=== PATIENT | male | born 1955 | race Caucasian/White ===

== ENCOUNTER 2024-09-15 06:09 | Day surgery (SDC) | payer BC, SELFPAY ==
[2024-09-15 07:52] VITALS: BMI 27.4
[2024-09-15 07:57] VITALS: BP 124/65
[2024-09-15 07:58] VITALS: BMI 27.4
[2024-09-15 11:04] VITALS: BP 114/62
[2024-09-15 11:15] VITALS: BP 117/57
[2024-09-15 11:30] VITALS: BP 119/70; BP 130/75
== END 2024-09-15 11:55 | disposition home or self-care (01) ==
LOC: GI 06:09
PROVIDERS: ATTENDING PHYSICIAN Internal Medicine Gastroenterology
DX: K86.89 Other specified diseases of pancreas (principal); K86.9 Disease of pancreas, unspecified; R93.3 Abnormal findings on diagnostic imaging of other parts of digestive tract; C49.A2 Gastrointestinal stromal tumor of stomach
CPT/HCPCS: 43242; 88173; 88305

== ENCOUNTER 2024-10-13 11:48 | Inpatient (IN) | payer MEDICARE, SELFPAY ==
[2024-09-30 11:53] LABS: Hematocrit 47.4 % (39.0-52.0); Hemoglobin 15.9 g/dL (13.0-18.0); Mean Corp Hgb Conc. 33.5 g/dL (33.0-37.0); Mean Corpuscular Hgb 31.6 pg (27.0-31.0); Mean Corpuscular Volume 94.2 fL (80.0-94.0); Mean Platelet Volume 10.3 fL (7.4-10.4); Platelet Count 291 10^3/uL (130-400); Red Blood Cell Count 5.03 10^6/uL (4.70-6.10); Red Cell Dist. Width 12.5 % (11.5-14.5); White Blood Cell Count 5.6 10^3/uL (4.8-10.8)
[2024-09-30 12:10] LABS: INR 1.14; PT 15.1 Sec (11.4-14.6)
[2024-09-30 12:11] LABS: APTT 33.2 Sec (23.4-35.0)
[2024-09-30 13:51] LABS: ALT (SGPT) 29 U/L (0-50); AST (SGOT) 26 U/L (17-59); Albumin 4.4 g/dl (3.5-5.0); Alkaline Phosphatase 83 U/L (38-126); Blood Urea Nitrogen 16 mg/dl (9-20); Calcium 10.2 mg/dl (8.4-10.2); Carbon Dioxide 28 mmol/L (22-30); Chloride 107 mmol/L (98-107); Glucose 90 mg/dl (70-99); Potassium 5.4 mmol/L (3.5-5.1); Sodium 142 mmol/L (135-145); Total Bilirubin 0.8 mg/dl (0.2-1.3); eGFR > 60.00
[2024-09-30 13:54] VITALS: BMI 27.1
[2024-10-13] VITALS (14 sets, daily range): BP systolic 0–164; BP diastolic 62–95; BMI 27.1
[2024-10-13] MEDS: NEURONTIN 300 MG PO (12:08)
[2024-10-13] MEDS: TYLENOL 1000 MG PO (12:08)
[2024-10-13] MEDS: NORMOSOL-R/PLASMALYTE-A 1000 IV (12:18)
[2024-10-13 13:20] LABS: Glucose - Point of Care 99 mg/dl (70-99)
[2024-10-13] MEDS: DILAUDID 0.25 MG IV ×2 (15:27→15:40)
--- NOTE | 2024-10-13 16:30 | PTCARENOTE ---
Pt received from PACU, pain is 2/10 in ABD. Lap sites and ROSALEE drain intact. Admission questions completed. Pt currently comfortable, CLD ordered.
[2024-10-13] MEDS: TYLENOL 650 MG PO ×2 (16:36→19:36)
[2024-10-13] MEDS: D5/0.9% SODIUM CHLORIDE 1000 IV (16:36)
[2024-10-13] MEDS: ROXICODONE 5 MG PO (17:34)
[2024-10-13] MEDS: TOPROL XL 50 MG PO (19:34)
[2024-10-13] MEDS: COLACE 100 MG PO (19:36)
[2024-10-13] MEDS: DILAUDID 0.5 MG IV (19:42)
[2024-10-13] MEDS: DIOVAN 160 MG PO (21:03)
[2024-10-13] MEDS: TYLENOL PO (23:57)
[2024-10-14] MEDS: ROXICODONE 5 MG PO ×3 (02:00→14:37)
[2024-10-14 03:00] VITALS: BP 138/64
[2024-10-14] MEDS: TYLENOL 650 MG PO ×4 (04:00→15:30)
--- NOTE | 2024-10-14 04:16 | DOWNTIME ---
Addendum entered by Beth Kasper RN 10/14/24 14:05:
Correction to downtime 10/14/2024 from 0100 to 10/14/24 at 0415.
Original Note:
There was a [employer] Downtime on 10/13/2024 from 0100 to 10/14/2024 at 0415. Downtime documentation of patient's care, including medication administrations, has been reconciled in the electronic record per guidelines. Refer to the
patient's paper chart under the miscellaneous tab to see printed paper medication records and downtime forms.
[2024-10-14] MEDS: D5/0.9% SODIUM CHLORIDE 1000 IV (05:30)
[2024-10-14 07:10] VITALS: BP 138/71
[2024-10-14] MEDS: TOPROL XL 50 MG PO (09:13)
[2024-10-14] MEDS: COLACE 100 MG PO (09:13)
[2024-10-14] MEDS: PROTONIX 20 MG PO (09:13)
[2024-10-14 11:10] VITALS: BP 139/73
--- NOTE | 2024-10-14 11:10 | CM ---
CM following re: discharge planning.
Reviewed pt's chart, met with pt.
Pt is a 69 year old male, admitted with primary dx of POD#1 laparoscopy, resection of pancreatic tumor.
Pt reports he lives with spouse and a son 2SH, 2 steps to enter, has 2 supportive children. 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
PCP: Juan Schaeffer
Pharmacy: [facility]
D/C plan: home with anticipated no needs.
CM will follow with discharge plan updates as hospitalization progresses
[2024-10-14 15:10] VITALS: BP 144/60
--- NOTE | 2024-10-14 16:30 | W.DS.TRANS ---
DC Summary - Aerobics Instructor
-
Discharge Instructions:
Sleep Apnea Risk High
Discharge Diagnosis/Procedures pancreatic tumor
Diet Regular
Activity No strenuous activity,As tolerated
Driving Restrictions Not until seen by your Dr
Bathing Restrictions OK to Shower
Instructions:
Stand-Alone Forms:
Changes to Home Medications: No
Discharge Medications:
DC Medications w/original date entered in [facility]
fluticasone propionate 50 mcg/actuation nasal spray,suspension 2 spray intranasal DAILY allergies 07/01/17
ascorbic acid (vitamin C) 500 mg tablet (Vitamin C) 500 mg PO DAILY Supplement 04/25/21
apixaban 5 mg tablet (Eliquis) 5 mg PO BID Blood Clot Prevention/Tx 07/27/22
zolpidem 5 mg tablet (Ambien) 5 mg PO HS PRN sleep 07/27/22
dupilumab 300 mg/2 mL subcutaneous pen injector (Dupixent) 300 mg SC Q2W High Cholesterol 10/29/22
metoprolol succinate 50 mg tablet,extended release 24 hr 50 mg PO BID Blood Pressure 09/15/24
[place] Beets 2 gummy PO DAILY Supplement 10/06/24
loratadine 10 mg tablet (Claritin) 10 mg PO DAILY PRN Allergy Symptoms 10/06/24
magnesium 200 mg tablet 400 mg PO DAILY Supplement 10/06/24
valsartan 160 mg tablet 160 mg PO HS Blood Pressure 10/06/24
vitamin B complex 1 tab PO DAILY Supplement 10/06/24
pantoprazole 20 mg tablet,delayed release (Protonix) 20 mg PO DAILY Gastrointestinal Issue 10/13/24
Home Medication Changes
Pending Results: No
== END 2024-10-14 17:05 | disposition home or self-care (01) | DRG 407 ==
LOC: 2 SOUTH 11:48
PROVIDERS: ADMITTING PHYSICIAN Surgery; FAMILY PHYSICIAN Internal Medicine
PROC: 0FBG4ZZ Excision of Pancreas, Percutaneous Endoscopic Approach (ICD-10-PCS; 2024-10-13)
DX: K86.9 Disease of pancreas, unspecified (principal)
CPT/HCPCS: 88305; 88332; 36415; 80053; 82962; 85027; 85610; 85730; 86850; 86900; 86901; 88331; 93005; C1729; C1776

== ENCOUNTER 2025-02-22 11:47 | Day surgery (SDC) | payer MEDICARE, SELFPAY ==
[2025-02-22 13:06] VITALS: BMI 28.3
--- NOTE | 2025-02-22 13:45 | ITS.CL.IMPLP ---
Maintenance Aide - Implant Loop
Implant Loop
Procedure Report:
Date of Procedure: February 22, 2025
Primary Care Provider: Dr Maurizio Carballo
Primary drop board worker: Dr Yobany Whitfield
Procedure: Insertable Loop Recorder Implantation
Indication:
Atrial fibrillation
Procedure:
The patient was brought to the procedure area in a fasting state. The anterior chest was prepped and draped in standard sterile fashion. The fourth intercostal space along the left sternal border was identified and this area was anesthetized with 10
mL of 1% lidocaine. After gathering the skin in this area, a small punch incision was made at approx intercostal space 4-5 at left costo-sternal junction using the provided scalpel/punch tool. The loop recorder was loaded into the tunneling device.
A tunnel was created in the subcutaneous tissue at a 45� angle along the coronal plane away from the sternum and towards the left flank. The tunneling device was inverted and the plunger was depressed, inserting the loop recorder into the
subcutaneous space. The tunneling device was removed. Manual pressure provide hemostasis. Adequate signal was confirmed. The skin was closed with steri-strips. The estimated blood loss was < 1 cc. A clean dressing was placed over the wound.
There were no complications.
Implant:
[employer] Reveal LINQ II
Conclusion: Uncomplicated implantation of loop recorder.
Recommendation:
Maintain off DOAC unless there is documented recurrent sustained atrial fibrillation or atrial flutter.
Routine ILR care.
Copy:
Primary Care Provider: Dr Maurizio Carballo
Primary drop board worker: Dr Yboany Whitfield
== END 2025-02-22 13:46 | disposition home or self-care (01) ==
LOC: CATH 11:47
PROVIDERS: ATTENDING PHYSICIAN Internal Medicine Cardiovascular Disease; FAMILY PHYSICIAN Internal Medicine
DX: Z09 Encounter for follow-up examination after completed treatment for conditions other than malignant neoplasm (principal); I48.91 Unspecified atrial fibrillation; I10 Essential (primary) hypertension; R55 Syncope and collapse; Z79.01 Long term (current) use of anticoagulants; Z79.899 Other long term (current) drug therapy
CPT/HCPCS: 33285; C1764

== ENCOUNTER → 2025-04-05 13:02 | Outpatient (REF) | payer MEDICARE, SELFPAY ==
[2025-04-05 14:22] LABS: Blood Urea Nitrogen 17 mg/dl (9-20)
== END ==
LOC: RAD 13:02
PROVIDERS: ATTENDING PHYSICIAN Surgery; FAMILY PHYSICIAN Internal Medicine
DX: K86.9 Disease of pancreas, unspecified (principal)
CPT/HCPCS: 36415; 82565; 84520

== ENCOUNTER → 2025-04-12 09:20 | Outpatient (REF) | payer MEDICARE, SELFPAY | LOC: RAD 09:20 | PROVIDERS: ATTENDING PHYSICIAN Surgery; FAMILY PHYSICIAN Internal Medicine | DX: K86.9 Disease of pancreas, unspecified (principal) | CPT/HCPCS: 74160; Q9967 ==